=== PATIENT | male | born 1930 | race African-American/Black ===

== ENCOUNTER 2017-04-28 15:06 | Emergency (ER) | payer OTHER ==
[~2017-04-28] VITALS: Ht 182.9 cm; Wt 79.4 kg
[~2017-04-28 15:06] MED LIST: LISI-275 PO
[2017-04-28 15:28] LABS: Hemoglobin 11.2 g/dL (13.5-17.5); Red Cell Distribution Width 16.5 % (11.8-14.3)
[2017-04-28 15:29] LABS: Hematocrit 33.9 % (41.0-53.0); Mean Corpuscular Hemoglobin 34.3 pg (28.0-32.0); Mean Corpuscular Hgb Conc. 33.2 g/dL (32.0-36.0); Mean Corpuscular Volume 103.4 fL (80.0-100.0); Mean Platelet Volume 7.7 fL (6.9-10.8); Platelet Count (auto) 206 10^3/uL (140-450); White Blood Cell 23.2 10^3/uL (4.4-10.8)
[2017-04-28] MEDS ORDERED: SODIUM CHLORIDE 0.9% 1,000 ML IV ONE (15:34)
[2017-04-28 15:47] LABS: Albumin 2.6 g/dL (3.4-5.0); Bilirubin, Total 0.3 mg/dL (0.2-1.0); Calcium 8.1 mg/dL (8.5-10.1); Potassium 4.6 mmol/L (3.5-5.1); Total Protein 6.7 g/dL (6.4-8.2)
[2017-04-28 15:53] LABS: Metamyelocytes % 0; Myelocytes % 0; Promyelocytes % 0; Reactive Lymphocytes 0
[2017-04-28 15:55] LABS: Platelet Estimate Adequate
[2017-04-28 15:57] LABS: Burr Cells FEW; Macrocytosis Slight; Ovalocytes FEW; Tear Drop Cells FEW
[2017-04-28 16:54] LABS: Magnesium 2.1 mg/dL (1.6-2.6)
[2017-04-28 17:44] LABS: Urine Bilirubin Negative (Negative); Urine Blood Negative /uL (Negative); Urine Color Yellow (Yellow); Urine Glucose Normal (Normal); Urine Hyaline Cast FEW /lpf (0 - 2); Urine Ketone Negative (Negative); Urine Mucus FEW (None Seen); Urine Nitrite Negative (Negative); Urine RBC 1 /hpf (0 - 3); Urine Urobilinogen Normal (Negative); Urine pH 5.5 (5.0-8.0)
[2017-04-28 19:14] VITALS: BP 162/77
[2017-04-28] MEDS ORDERED: LORazepam 2MG/ML-1ML VIAL IV PRN (21:00)
[2017-04-28] MEDS ORDERED: ACETAMINOPHEN 500 MG TAB PO PRN (21:00)
[2017-04-28] MEDS ORDERED: HYDROcodone-ACET 5/325MG TAB PO PRN (21:00)
[2017-04-28] MEDS ORDERED: diphenhdrAMINE HCL 50 MG/1 ML VL IV PRN (21:00)
[2017-04-29] MEDS ORDERED: amLODIPine BESYLATE 5 MG TAB PO SCH (10:00)
== END 2017-04-28 22:26 | disposition short-term general hospital (02) ==
LOC: EDBD 15:06 → ER 15:08 → UNDOADMIN 15:09 → OVERFLOW 15:09 → ER 22:26
DX: R53.1 Weakness (principal); R55 Syncope and collapse; C91.10 Chronic lymphocytic leukemia of B-cell type not having achieved remission; D64.9 Anemia, unspecified; I12.9 Hypertensive chronic kidney disease with stage 1 through stage 4 chronic kidney disease, or unspecified chronic kidney disease; E07.9 Disorder of thyroid, unspecified; F02.80 Dementia in other diseases classified elsewhere, unspecified severity, without behavioral disturbance, psychotic disturbance, mood disturbance, and anxiety; I25.2 Old myocardial infarction; E78.5 Hyperlipidemia, unspecified
CPT/HCPCS: 36415; 70450; 71010; 80053; 81001; 82962; 83735; 84443; 84484; 85007; 85027; 93005; 93971; 94761; 96360; 96361

== ENCOUNTER 2017-06-05 05:40 | Emergency (ER) | payer OTHER ==
[~2017-06-05] VITALS: Ht 172.7 cm; Wt 69.9 kg
[2017-06-05] MEDS ORDERED: SODIUM CHLORIDE 0.9% 500 ML IVB ONE (05:45)
[2017-06-05 06:35] LABS: Mean Platelet Volume 7.1 fL (6.9-10.8)
[2017-06-05 06:37] LABS: Hematocrit 40.9 % (41.0-53.0); Hemoglobin 12.6 g/dL (13.5-17.5); Mean Corpuscular Hgb Conc. 30.9 g/dL (32.0-36.0); Mean Corpuscular Volume 110.2 fL (80.0-100.0); Platelet Count (auto) 242 10^3/uL (140-450); Red Cell Distribution Width 18.5 % (11.8-14.3); White Blood Cell 5.1 10^3/uL (4.4-10.8)
[2017-06-05 06:41] LABS: Metamyelocytes % 0; Myelocytes % 0; Promyelocytes % 0; Reactive Lymphocytes 0
[2017-06-05 06:53] LABS: INR > 10 (0.9-1.15)
[2017-06-05 06:54] LABS: Lactic Acid w/Reflex 5.7 mmol/L (0.4-2.0)
[2017-06-05 06:55] LABS: Albumin 2.4 g/dL (3.4-5.0); Anion Gap 14 (5-15); Aspartate Aminotransferase 24 U/L (15-37); BUN/Creatinine Ratio 10.9; Blood Urea Nitrogen 42 mg/dL (7-18); Calcium 8.3 mg/dL (8.5-10.1); Carbon Dioxide 16 mmol/L (21-32); Chloride 111 mmol/L (98-107); GFR African American 19 mL/min; GFR Non-African American 16 mL/min; Glucose 131 mg/dL (74-106); Magnesium 2.5 mg/dL (1.6-2.6); Potassium 5.3 mmol/L (3.5-5.1); Sodium 141 mmol/L (136-145)
[2017-06-05 07:01] LABS: Alkaline Phosphatase 77 U/L (45-117); Bilirubin, Total 0.4 mg/dL (0.2-1.0); Total Protein 6.9 g/dL (6.4-8.2)
[2017-06-05 07:14] LABS: Temperature: 21.1 C (20.0-25.0)
[2017-06-05 07:24] LABS: Platelet Estimate Adequate
[2017-06-05 07:26] LABS: REFLEX LACTIC ACID YES OR NO YES
[2017-06-05] MEDS ORDERED: LIDOCAINE 2% JELLY 11ml (GLYDO) ONE (08:04)
[2017-06-05 08:19] LABS: Anisocytosis Slight; Burr Cells FEW; Macrocytosis Marked; Ovalocytes FEW
[2017-06-05] MEDS ORDERED: LIDOCAINE 2% JELLY 11ml (GLYDO) UR ONE (08:30)
[2017-06-05] MEDS ORDERED: SODIUM CHLORIDE 0.9% 1,000 ML IV ONE (08:38)
[2017-06-05] MEDS ORDERED: PHYTONADIONE ORAL Susp 10 mg/10ml PO ONE (08:45)
[2017-06-05 08:58] LABS: Urine Bilirubin Negative (Negative); Urine Blood 2+ /uL (Negative); Urine Color Yellow (Yellow); Urine Glucose Normal (Normal); Urine Ketone Negative (Negative); Urine Nitrite Negative (Negative); Urine RBC 39 /hpf (0 - 3); Urine Urobilinogen Normal (Negative)
[2017-06-05 10:04] LABS: Base Excess -7.7 mmol/L (-2.0-2.0); Blood 02Sat 97.8 % (96-100); Blood COHb 0.3 % (0.5-1.5); Blood MetHb 0.5 % (0.0-1.5); HCO3 15.8 mmol/L (22-26.0); HHb 2.2 % (0.0-5.0); MODE NASAL CANNULA; PO2 123.5 mmHg (80.0-100.0); PO2(T) 123.5 mmHg (80.0-100.0); Sample Type Arterial; pH 7.384 (7.350-7.450)
[2017-06-05 13:31] VITALS: BP 106/67
== END 2017-06-05 13:47 | disposition short-term general hospital (02) ==
LOC: EDBD 05:40 → ER 05:41
DX: R41.82 Altered mental status, unspecified (principal); I12.9 Hypertensive chronic kidney disease with stage 1 through stage 4 chronic kidney disease, or unspecified chronic kidney disease; N18.4 Chronic kidney disease, stage 4 (severe); E78.5 Hyperlipidemia, unspecified; I25.2 Old myocardial infarction; G30.9 Alzheimer's disease, unspecified; F02.80 Dementia in other diseases classified elsewhere, unspecified severity, without behavioral disturbance, psychotic disturbance, mood disturbance, and anxiety
CPT/HCPCS: 36415; 36600; 51702; 70450; 71010; 80053; 80307; 80320; 81001; 82805; 83605; 83735; 83880; 84484; 85007; 85027; 85610; 85730; 87040; 87086; 93005; 96360; 96361; 99285; J3430; J7030; 94761